=== PATIENT | male | born 1955 | race Caucasian/White ===

== ENCOUNTER 2018-08-28 16:55 | Inpatient (IN) | payer OTHER ==
[~2018-08-28] VITALS: Ht 172.7 cm; Wt 74.1 kg
[2018-08-28] VITALS (357 sets, daily range): BP systolic 144–162; BP diastolic 99–102; PULSE 62–81; TEMP 97.7–98; O2SAT 90–97
[2018-08-28] MEDS ORDERED: ISOSORBIDE MON120 MG PO (19:55)
[2018-08-28] MEDS ORDERED: NITROSTAT0.4 MG/TAB SL (19:56)
[2018-08-28] MEDS ORDERED: TOPROL XL 50MG50 MG PO (19:56)
[2018-08-28] MEDS ORDERED: PROTONIX 40MG T40 MG PO (19:57)
[2018-08-28] MEDS ORDERED: RANEXA 500MG T500 MG PO (19:57)
[2018-08-28] MEDS ORDERED: CRESTOR40 MG PO (19:58)
[2018-08-28] MEDS ORDERED: ASPIRIN E.C. 8181 MG PO (19:59)
[2018-08-28 21:12] LABS: BASO % 0.6 % (0.0-2.0); EOS # 0.3 (0.0-0.7); EOS % 4.1 % (0-4.0); GRAN # 4.3 (1.4-6.5); GRAN % 63.6 % (42.2-75.2); HEMATOCRIT 45.2 % (42.0-52.0); HEMOGLOBIN 16.3 g/dl (13.5-18.0); LYMPH # 1.5 (1.2-3.4); MEAN CELL VOLUME 99 fl (80.0-100.0); MEAN CORPUSCULAR HEMOGLOBIN 36 pg (27.0-31.0); MEAN CORPUSCULAR HGB CONC 36 g/dl (33.0-37.0); MEAN PLATELET VOLUME 9.7 fl (7.4-10.4); MONO # 0.6 (0.1-0.6); MONO % 9.3 % (1.7-9.3); PLATELET COUNT 174 K/mm3 (130-400); RED BLOOD COUNT 4.59 M/mm3 (4.20-5.60); REDCELL DISTRIBUTION WIDTH-CV 11.8 % (11.5-14.5)
[2018-08-28 21:22] LABS: PARTIAL THROMBOPLASTIN TIME 84.7 SECONDS (26.0-37.0)
[2018-08-28 21:23] LABS: CALCIUM 9.5 mg/dL (8.4-10.2); CREATININE, serum 0.96 mg/dL (0.66-1.25); POTASSIUM 4.1 mmol/L (3.4-5.0)
[2018-08-28 21:36] LABS: TROPONIN-I 14.3 ng/mL (0.000-0.034)
[2018-08-29] VITALS (285 sets, daily range): BP systolic 103–145; BP diastolic 72–93; PULSE 65–90; TEMP 97.8–98.2; O2SAT 92–99
== END 2018-08-29 12:30 | disposition short-term general hospital (02) | DRG 282 ==
LOC: IMCU 16:55 → ICU 18:02 → IMCU 18:02 → ICU 20:59 → EDBD 20:59 → ICU 08-29 12:30
PROVIDERS: Nurse Practitioner
PROC: 4A023N7 Measurement of Cardiac Sampling and Pressure, Left Heart, Percutaneous Approach (ICD-10-PCS; principal; 2018-08-29)
PROC: B2111ZZ Fluoroscopy of Multiple Coronary Arteries using Low Osmolar Contrast (ICD-10-PCS; 2018-08-29)
PROC: B2181ZZ Fluoroscopy of Left Internal Mammary Bypass Graft using Low Osmolar Contrast (ICD-10-PCS; 2018-08-29)
PROC: B2151ZZ Fluoroscopy of Left Heart using Low Osmolar Contrast (ICD-10-PCS; 2018-08-29)
DX: I21.4 Non-ST elevation (NSTEMI) myocardial infarction (principal); I25.10 Atherosclerotic heart disease of native coronary artery without angina pectoris; Z95.5 Presence of coronary angioplasty implant and graft; I10 Essential (primary) hypertension; E78.5 Hyperlipidemia, unspecified; Z95.1 Presence of aortocoronary bypass graft
CPT/HCPCS: OP; 99223-AI; 99239; C1725; C1769; C1887; J1644; J2250; J2270; J3010; J7030; Q9967